=== PATIENT | male | born 1980 | race African-American/Black ===

== ENCOUNTER → 2017-01-10 | Outpatient (CLI) | payer MEDICAID ==
[2017-01-10 10:02] LABS: CHOLESTEROL 130.41 mg/dL (0-200); Direct HDL 56 mg/dL (>40); TRIGLYCERIDES 77 mg/dL (<150)
[2017-01-10 10:19] LABS: DIRECT LDL < 30 mg/dL (<100)
== END ==
LOC: OD 09:09
PROVIDERS: ATTEND Psychiatry & Neurology Psychiatry
DX: F20.9 Schizophrenia, unspecified (principal)
CPT/HCPCS: 36415; 80061; 83036

== ENCOUNTER → 2017-03-31 | Outpatient (CLI) | payer MEDICAID ==
--- NOTE | 2017-03-31 16:33 | RADIOLOGY REPORT (SQ) ---
EXAM DESCRIPTION: PARANASAL SINUSES COMPLETED DATE/TIME: 03/31/2017 4:13 pm REASON FOR STUDY: COUGH R05 COUGH COMPARISON: None. NUMBER OF VIEWS: Three views. TECHNIQUE: Images of the paranasal sinuses acquired. LIMITATIONS: None. FINDINGS: ORBITS: No fracture. No foreign body. SINUSES: No mucosal thickening. No air fluid levels. FACIAL BONES: No fracture. OTHER: No other significant finding. IMPRESSION: NO FOREIGN BODY OR FRACTURE. NO PLAIN RADIOGRAPHIC EVIDENCE FOR SINUS DISEASE. TECHNICAL DOCUMENTATION: JOB ID: [id number] [employer]- All Rights Reserved
== END ==
LOC: OD 15:58
PROVIDERS: ATTEND Internal Medicine
DX: R05 Cough (principal)
CPT/HCPCS: 70220

== ENCOUNTER → 2018-01-11 | Outpatient (CLI) | payer MEDICAID ==
[2018-01-11 11:46] LABS: CHOLESTEROL 135.77 mg/dL (0-200); TRIGLYCERIDES 113 mg/dL (<150)
[2018-01-11 11:58] LABS: DIRECT LDL < 30 mg/dL (<100)
== END ==
LOC: OD 10:45
PROVIDERS: ATTEND Psychiatry & Neurology Psychiatry
DX: F20.9 Schizophrenia, unspecified (principal)
CPT/HCPCS: 36415; 80061; 83036

== ENCOUNTER 2018-05-16 17:49 | Emergency (ER) | payer MEDICAID ==
[2018-05-16] MEDS ORDERED: RINGERS SOLUTION,LACTATED 1,000 ML IV ONE (18:36)
[2018-05-16] MEDS ORDERED: ONDANSETRON HCL INJ/PF 4 MG/2 ML SDV IV ONE (18:37)
[2018-05-16] MEDS ORDERED: KETOROLAC TROMETHAMINE INJ/PF 30 MG/1 ML SDV IV ONE (18:37)
--- NOTE | 2018-05-16 18:37 | ER Document Report ---
ED General - General Chief Complaint: Nausea/Vomiting Stated Complaint: PSYCH EVAL/WEAKNESS Time Seen by Provider: 05/16/18 18:09 Cannot obtain history due to: Mentally challenged Notes: Patient is a 38-year-old male with a past medical history of MR, development of delay, no chronic medical problems who presents with 2 days of laying in bed most of the day as well as nausea and vomiting. The majority of the history is provided by the grandmother as the patient is minimally communicative. She reports that the patient has drank fluids over the past several days but has refused to eat. He has not complained of anything else. They decided to bring him into the hospital stay because he was "not acting like himself". He has not seen his general doctor regarding today's concerns. Family does not believe he has had similar symptoms in the past. He has no prior surgical history. No fever, diarrhea. TRAVEL OUTSIDE OF THE [place] IN LAST 30 DAYS: No - Related Data Allergies/Adverse Reactions: No Known Drug Allergies Allergy (Verified 05/16/18 18:03) Past Medical History - General Information source: Relative - Social History Smoking Status: Never Smoker Frequency of alcohol use: None Drug Abuse: None Lives with: Grandparent(s) Family History: Reviewed & Not Pertinent Patient has suicidal ideation: No Patient has homicidal ideation: No Renal/ Medical History: Denies: Hx Peritoneal Dialysis Psychiatric Medical History: Reports: Hx Borderline Personality Disorder, Hx Schizophrenia - Immunizations Hx Diphtheria, Pertussis, Tetanus Vaccination: Yes Review of Systems - Review of Systems Notes: Constitutional: Negative for fever. HENT: Negative for sore throat. Eyes: Negative for visual changes. Cardiovascular: Negative for chest pain. Respiratory: Negative for shortness of breath. Positive for cough Gastrointestinal: Negative for abdominal pain, positive for vomiting Genitourinary: Negative for dysuria. Musculoskeletal: Negative for back pain. Skin: Negative for rash. Neurological: Negative for headaches, weakness or numbness. 10 point ROS negative except as marked above and in HPI. Physical Exam - Vital signs Vitals: Temp 98.9 F 05/16/18 17:50 Interpretation: Normal Notes: PHYSICAL EXAMINATION: GENERAL: Well-appearing, well-nourished and in no acute distress. HEAD: Atraumatic, normocephalic. EYES: Pupils equal round and reactive to light, extraocular movements intact, sclera anicteric, conjunctiva are normal. ENT: nares patent, oropharynx clear without exudates. Moderately dry mucous membranes. NECK: Normal range of motion, supple without lymphadenopathy LUNGS: Breath sounds clear to auscultation bilaterally and equal. No wheezes rales or rhonchi. HEART: Regular rate and rhythm without murmurs ABDOMEN: Soft, nontender, normoactive bowel sounds. No guarding, no rebound. No masses appreciated. EXTREMITIES: Normal range of motion, no pitting or edema. No cyanosis. NEUROLOGICAL: No focal neurological deficits. Moves all extremities spontaneously and on command. PSYCH: Alert, oriented to person, does not speak in anything beyond yes or no answers SKIN: Warm, Dry, normal turgor, no rashes or lesions noted. Course - Re-evaluation Re-evalutation: 05/16/18 18:36 Presentation of a 38-year-old male with MR who presents with vomiting for the past 2 days and grandparents report that he has not really gotten out of bed for the past 2 days. The patient is in no distress, denies any complaints although his report may be limited by his MR. He has no focal abdominal tenderness on examination. No testicular swelling or tenderness. Moderately dry mucous membranes. Mild pharyngeal erythema without tonsillar exudates or palatal petechiae. No anterior cervical or posterior cervical lymphadenopathy. Grandmother does report some moderate cough at home. No diarrhea. History is will obtain labs, chest x-ray, urinalysis and reassess the patient. 05/16/18 21:42 Labs unremarkable. Patient has tolerated oral intake without difficulty. Repeat abdominal exam remains benign. The exact etiology of the patient's presentation is uncertain but does not appear to be from any immediate life- threatening cause at this time. Suspect possible viral illness. I have emphasized diagnostic uncertainty with the family. I have asked the grandparents are the guardians at the bedside take the patient to his primary care doctor tomorrow for an abdominal recheck as well as follow-up visit. At this time will discharge with return precautions and follow-up recommendations. Verbal discharge instructions given a the bedside and opportunity for questions given. Medication warnings reviewed. Family is in agreement with this plan and has verbalized understanding of return precautions and the need for primary care follow-up in the next 24-72 hours. - Vital Signs Vital signs: Temp Pulse Resp BP Pulse Ox 98.9 F 14 112/72 94 05/16/18 17:50 05/16/18 22:50 05/16/18 22:50 05/16/18 22:50 - Laboratory Result Diagrams: 05/16/18 17:58 05/16/18 17:58 Laboratory results interpreted by me: 05/16/18 05/16/18 05/16/18 17:58 17:58 19:13 WBC 11.5 H RBC 5.76 H MCH 26.2 L RDW 14.3 H Seg Neutrophils % 86.5 H Lymphocytes % 5.6 L Absolute Neutrophils 9.9 H Glucose 167 H ALT 20 L Total Protein 8.4 H Urine Protein 100 H Urine Ketones 80 H Urine Urobilinogen 2.0 H Urine Ascorbic Acid 20 H - Diagnostic Test Radiology reviewed: Image reviewed, Reports reviewed Radiology results interpreted by me: 05/16/18 21:43 Chest x-ray: No acute infiltrate or pneumothorax Discharge - Discharge Clinical Impression: Vomiting Qualifiers: Vomiting type: unspecified Vomiting Intractability: non-intractable Nausea presence: with nausea Qualified Code(s): R11.2 - Nausea with vomiting, unspecified Fatigue Qualifiers: Fatigue type: unspecified Qualified Code(s): R53.83 - Other fatigue Condition: Good Disposition: HOME, SELF-CARE Additional Instructions: Please have your grandson follow-up with his primary care doctor in the morning for an abdominal recheck and follow-up for today's visit. He is to return to the emergency department immediately for any worsening of his symptoms, persistent vomiting, passing out, developing fever greater than 100.4F, or any other symptoms that are concerning to you. Referrals: KARTIK MELENDREZ MD [Primary Care Provider] - Follow up as needed
--- NOTE | 2018-05-16 19:26 | RADIOLOGY REPORT (SQ) ---
EXAM DESCRIPTION: CHEST SINGLE VIEW COMPLETED DATE/TIME: 05/16/2018 7:01 pm REASON FOR STUDY: cough COMPARISON: None. EXAM PARAMETERS: NUMBER OF VIEWS: One view. TECHNIQUE: Single frontal radiographic view of the chest acquired. RADIATION DOSE: NA LIMITATIONS: None. FINDINGS: LUNGS AND PLEURA: No opacities, masses or pneumothorax. No pleural effusion. MEDIASTINUM AND HILAR STRUCTURES: No masses. Contour normal. HEART AND VASCULAR STRUCTURES: Heart normal in size. Normal vasculature. BONES: No acute findings. HARDWARE: None in the chest. OTHER: No other significant finding. IMPRESSION: NO ACUTE RADIOGRAPHIC FINDING IN THE CHEST. TECHNICAL DOCUMENTATION: JOB ID: [id number] [employer]- All Rights Reserved Reading location - IP/workstation name: [email or web address]
[2018-05-16 19:33] LABS: APPEARANCE,URINE SLIGHTLY-CLOUDY; BILIRUBIN,URINE NEGATIVE (NEGATIVE); COLOR,URINE YELLOW; GLUCOSE, URINE NEGATIVE (NEGATIVE); KETONES,URINE 80 mg/dL (NEGATIVE); LEUKOCYTE ESTERASE,URINE NEGATIVE (NEGATIVE); NITRITE,URINE NEGATIVE (NEGATIVE); PROTEIN,URINE 100 mg/dL (NEGATIVE); URINE SPECIFIC GRAVITY 1.029
[2018-05-16 20:56] LABS: ABSOLUTE LYMPHOCYTES (AUTO) 0.6 10^3/uL (0.5-4.7); ABSOLUTE MONOCYTES (AUTO) 0.8 10^3/uL (0.1-1.4); ABSOLUTE NEUT (AUTO) 9.9 10^3/uL (1.7-8.2); BASOPHILS % (AUTO) 0.4 % (0-2); EOSINOPHILS % (AUTO) 0.1 % (0-6); HEMATOCRIT 46.1 % (37.9-51.0); HEMOGLOBIN 15.1 g/dL (13.5-17.0); LYMPHOCYTES % (AUTO) 5.6 % (13-45); MEAN CORPUSCULAR HEMOGLOBIN 26.2 pg (27.0-33.4); MEAN CORPUSCULAR HGB CONC 32.8 g/dL (32.0-36.0); MEAN CORPUSCULAR VOLUME 80 fl (80-97); MONOCYTES % (AUTO) 7.4 % (3-13); PLATELET COUNT 264 10^3/uL (150-450); RED BLOOD COUNT 5.76 10^6/uL (4.35-5.55); RED CELL DISTRIBUTION WIDTH 14.3 % (11.5-14.0); SEGMENTED NEUTROPHILS % (AUTO) 86.5 % (42-78); TOTAL CELLS COUNTED % (AUTO) 100 %; WHITE BLOOD COUNT 11.5 10^3/uL (4.0-10.5)
[2018-05-16 21:28] LABS: ALANINE AMINOTRANSFERASE 20 U/L (21-72); ALBUMIN 4.9 g/dL (3.5-5.0); ALKALINE PHOSPHATASE 90 U/L (38-126); ANION GAP 14 (5-19); ASPARTATE AMINO TRANSFERASE 25 U/L (17-59); BILIRUBIN,DIRECT 0.4 mg/dL (0.0-0.4); BILIRUBIN,TOTAL 0.7 mg/dL (0.2-1.3); BLOOD UREA NITROGEN 10 mg/dL (7-20); CALCIUM 10.2 mg/dL (8.4-10.2); CARBON DIOXIDE 24 mmol/L (22-30); CHLORIDE 105 mmol/L (98-107); GLUCOSE 167 mg/dL (75-110); LIPASE 58.3 U/L (23-300); POTASSIUM 4.9 mmol/L (3.6-5.0); SODIUM 142.7 mmol/L (137-145); TOTAL PROTEIN 8.4 g/dL (6.3-8.2)
[2018-05-16 22:59] VITALS: BP 112/72
== END 2018-05-16 22:58 | disposition home or self-care (01) ==
LOC: ER 17:49
DX: R11.2 Nausea with vomiting, unspecified (principal); R53.1 Weakness; R53.83 Other fatigue; R05 Cough
CPT/HCPCS: 99284; 96361; 96374; 36415; 83690; 85025; 80053; 81001; 71045; J2405; J7120

== ENCOUNTER → 2018-12-20 | Outpatient (CLI) | payer MEDICAID ==
[2018-12-20 13:22] LABS: CHOLESTEROL 153.06 mg/dL (0-200); TRIGLYCERIDES 75 mg/dL (<150)
[2018-12-20 13:33] LABS: DIRECT LDL 37 mg/dL (<100)
== END ==
LOC: OD 12:01
PROVIDERS: ATTEND Psychiatry & Neurology Psychiatry
DX: F20.9 Schizophrenia, unspecified (principal)
CPT/HCPCS: 36415; 80061; 83036

== ENCOUNTER → 2020-07-10 | Outpatient (CLI) | payer MEDICAID ==
[2020-07-10 09:49] LABS: CHOLESTEROL 141.09 mg/dL (0-200); TRIGLYCERIDES 75 mg/dL (<150)
[2020-07-10 10:06] LABS: DIRECT LDL < 30 mg/dL (<100)
== END ==
LOC: OD 08:12
PROVIDERS: ATTEND Psychiatry & Neurology Psychiatry
DX: F20.9 Schizophrenia, unspecified (principal)
CPT/HCPCS: 36415; 80061; 83036